=== PATIENT | female | born 1995 | race Caucasian/White ===

== ENCOUNTER 2019-07-04 12:15 | Emergency (ER) | payer SELFPAY ==
[~2019-07-04] VITALS: Ht 165.1 cm; Wt 67.0 kg
--- NOTE | 2019-07-04 13:42 | NUR ---
PT AMBULATORY WITH STEADY GAIT FROM LOBBY TO ROOM.
--- NOTE | 2019-07-04 13:55 | NUR ---
PT HERE WITH C/O ABDOMINAL PAIN (GENERALIZED) X 3 DAYS, POSSIBLE UTI SYMTPOMS, BACK PAIN, AND INCREASED VAGINAL BLEEDING (PT ON MENSTURAL CYCLE). PT AAO X 4, DRESSED IN GOWN AND ATTACHED TO MONITOR. NAD, ROOM AIR, CALL LIGHT WITHIN REACH, SIDERAIL X [address]. PT VERY RESTLESS IN BED, STATES HX ANXIETY AND RECURRENT UTIS IN THE PAST.
--- NOTE | 2019-07-04 13:58 | NUR ---
PA AT BEDSIDE.
[2019-07-04] MEDS ORDERED: BUSPAR (14:00)
[2019-07-04] MEDS ORDERED: VISTARIL (14:00)
--- NOTE | 2019-07-04 14:24 | NUR ---
PT TO XRAY.
[2019-07-04 14:29] LABS: BASOPHILS # (AUTO) 0.03 x10^3/uL (0-0.1); BASOPHILS % (AUTO) 0 % (0-1); EOSINOPHILS % (AUTO) 1 % (1-7); LYMPHOCYTES # (AUTO) 1.41 x10^3/uL (1-3.4); LYMPHOCYTES % (AUTO) 14 % (22-44); MD NO; MEAN CORPUSCULAR HEMOGLOBIN 31.3 pg (27.0-34.8); MEAN CORPUSCULAR HGB CONC 33.7 g/dL (32.4-35.8); MEAN CORPUSCULAR VOLUME 93.1 fL (80-100); MEAN PLATELET VOLUME 8.9 fL (7.4-10.4); MONOCYTES % (AUTO) 4 % (2-9); NEUTROPHILS # (AUTO) 8.28 x10^3/uL (1.8-6.8); NEUTROPHILS % (AUTO) 81 % (42-75); PLATELET COUNT 292 x10^3/uL (130-400); RED BLOOD COUNT 4.49 x10^6/uL (3.82-5.3); RED CELL DISTRIBUTION WIDTH 12.2 % (9.6-15.2)
[2019-07-04 14:38] LABS: ALANINE AMINOTRANSFERASE 30 U/L (12-78); ANION GAP 8 mmol/L (5-15); CALCIUM 8.6 mg/dL (8.5-10.1); CHLORIDE 109 mmol/L (98-107); CREATININE 0.64 mg/dL (0.55-1.02)
[2019-07-04 14:42] LABS: ALKALINE PHOSPHATASE 82 U/L (45-117); BILIRUBIN,TOTAL 0.5 mg/dL (0.2-1.0); TOTAL PROTEIN 7.7 g/dL (6.4-8.2)
--- NOTE | 2019-07-04 14:43 | NUR ---
PT BACK FROM XRAY, EDUCATED ON NEED FOR UA.
--- NOTE | 2019-07-04 14:44 | NUR ---
TASK RN: RECIEVED BEDSIDE REPORT FROM RANDY SHAH. PT AMBULATORY WITH STEADY GAIT TO BATHROOM TO PROVIDE SAMPLE.
--- NOTE | 2019-07-04 15:09 | NUR ---
Ximena kennedy in [facility] - 07/04/19 at 1510 by HERNAN TASK RN: GOT PERMISSION FROM PT TO SPEAK WITH H ER MOT
--- NOTE | 2019-07-04 15:10 | NUR ---
TASK RN: GOT PERMISSION TO SPEAK WITH PT MOTHER. MOTHER NAME MOTHER NAME NISHANT BROWN.
--- NOTE | 2019-07-04 15:12 | NUR ---
BEDSIDE REPORT TO RANDY SHAH.
--- NOTE | 2019-07-04 15:12 | NUR ---
UA WALKED TO LAB. NADJovon. PT REATTACHED TO ALL MONITORS.
--- NOTE | 2019-07-04 15:17 | NUR ---
PT RESTING ON JONES CARRASCO WALKED TO LAB BY BREAK RN.
[2019-07-04 15:18] VITALS: BP 116/78
[2019-07-04 15:56] LABS: MICROSCOPIC INDICATED
[2019-07-04 16:07] LABS: CULTURE INDICATED? YES
--- NOTE | 2019-07-04 16:13 | NUR ---
ALL RESULTS BACK AT THIS TIME, CHART UP FOR RECHECK.
--- NOTE | 2019-07-04 16:19 | NUR ---
Ximena kennedy in ED - 07/04/19 at 1619 by ALEKSANDER ALL RESULTS BACK AT THIS TIME, CHART UP FOR RECHECK.
--- NOTE | 2019-07-04 16:54 | NUR ---
Patient/Caregiver given discharge instructions and they have confirmed that they understand the instructions. Patient ambulatory with steady gait.
== END 2019-07-04 16:55 | disposition home or self-care (01) ==
LOC: ED 16:15
DX: R10.84 Generalized abdominal pain (principal)
CPT/HCPCS: 36415; 76700; 80053; 81001; 83690; 84703; 85025; 87086; 99284